=== PATIENT | female | born 1975 | race Caucasian/White ===

== ENCOUNTER 2018-09-21 08:11 | Day surgery (SDC) | payer OTHER ==
[2018-09-21] VITALS (10 sets, daily range): BP systolic 105–132; BP diastolic 65–82
[~2018-09-21] VITALS: Ht 157.5 cm; Wt 68.0 kg
[~2018-09-21 08:11] MED LIST: LO LOESTRIN FE1 EAC1 PO; cefOXitin Sod 2 GM in D5W 110 ML IVPB ONE
[2018-09-21] MEDS ORDERED: fentaNYL 100 mcg/2 mL IV ONE (09:44)
[2018-09-21] MEDS ORDERED: Midazolam 2mg/2ml Inj ONE (09:44)
[2018-09-21] MEDS ORDERED: Lidocaine 1% MPF 10mg/ml 5ml ONE (09:47)
[2018-09-21] MEDS ORDERED: Propofol 200mg/20ml IV ONE (09:47)
[2018-09-21] MEDS ORDERED: cefOXitin 1gm Inj ONE (09:50)
[2018-09-21] MEDS ORDERED: Succinylcholine 20mg/ml 10ml vial ONE (09:51)
[2018-09-21] MEDS ORDERED: Zemuron 50mg/5ml Inj IV ONE (09:51)
[2018-09-21] MEDS ORDERED: Sterile Water Irrig 1000ml IRRIG ONE (10:00)
[2018-09-21] MEDS ORDERED: LR 1000ml ONE (10:00)
[2018-09-21] MEDS ORDERED: Neostigmine 1mg/ml 10ml Inj ONE (10:00)
[2018-09-21] MEDS ORDERED: NS Irrig 1000ml ONE (10:00)
--- NOTE | 2018-09-21 10:03 | Pre-Procedure Note/Attestation ---
Pre-Procedure Note/Attestation Complete Prior to Procedure Planned Procedure: right Procedure Narrative: Laparoscopic right ovarian cystectomy, hysteroscopy, dilation and curettage Indications for Procedure Pre-Operative Diagnosis: Right ovarian cyst, abnormal uterine bleeding Attestation I attest that I discussed the nature of the procedure; its benefits; risks and complications; and alternatives (and the risks and benefits of such alternatives ), prior to the procedure, with the patient (or the patient's legal environmental marketing representative). I attest that, if there was a reasonable possibility of needing a blood transfusion, the patient (or the patient's legal environmental marketing representative) was given the [facility] standardized written summary, pursuant to the [place] Blood Safety Act ([place] Health and Safety Code # 1645, as amended). I attest that I re-evaluated the patient just prior to the surgery and that there has been no change in the patient's H&P, except as documented below: Harini Vogel M.D. Sep 21, 2018 10:03
[2018-09-21] MEDS ORDERED: Ropivacaine 5mg/ml Vial 30ml INJ ONE (10:07)
--- NOTE | 2018-09-21 11:02 | Anethesia Preoperative Eval ---
Anesthesia Pre-op PMH/ROS General Date of Evaluation: Sep 21, 2018 Time of Evaluation: 09:50 Anesthesiologist: Henri ASA Score: ASA 2 Mallampati Score Class I : Soft palate, uvula, fauces, pillars visible Class II: Soft palate, uvula, fauces visible Class III: Soft palate, base of uvula visible Class IV: Only hard plate visible Mallampati Classification: Class II Surgeon: Wes Diagnosis: Pelvic pain Surgical Procedure: D&C Hysterscopy, Laparoscopy Anesthesia History: none Family History: no anesthesia problems Allergies: Coded Allergies: No Known Allergies (Unverified , 09/18/18) Medications: see eMAR Patient NPO?: Yes Past Medical History Cardiovascular: Denies: HTN, CAD, CT, valve dz, arrhythmia, other Pulmonary: Denies: asthma, COPD, BRETT, other Gastrointestinal/Genitourinary: Reports: GERD; Denies: CRI, ESRD, other Neurologic/Psychiatric: Denies: dementia, CVA, depression/anxiety, TIA, other Endocrine: Denies: DM, hypothyroidism, steroids, other HEENT: Denies: cataract (L), cataract (R), glaucoma, BURNS PAIUTE (L), BURNS PAIUTE (R), other Hematology/Immune: Denies: anemia, DVT, bleeding disorder, other Musculoskeletal/Integumentary: Denies: OA, RA, DJD, DDD, edema, other PMH Narrative: as above PSxH Narrative: Anesthesia Pre-op Phys. Exam Physician Exam Last Vital Signs Date Time Temp Pulse Resp B/P (MAP) Pulse Ox O2 Delivery O2 Flow Rate FiO2 09/21/18 08:53 Room Air 09/21/18 08:45 97.4 66 18 120/70 98 Constitutional: NAD Neurologic: CN 2-12 intact Cardiovascular: RRR, no M/R/G Respiratory: CTA Gastrointestinal: S/NT/ND Airway Exam Mallampati Score: Class II MO: full Neck: flexible ROM: full Teeth: intact Dentures: no upper, no lower Anesthesia Pre-op A/P Labs See chart Urine Test Test 09/21/18 08:25 Urine HCG, Qualitative Negative (NEGATIVE) Studies Pre-op Studies: EKG - NSR Risk Assessment & Plan Assessment: ASA 2 Plan: GA with ETT PONV Prevention Status Change Before Surgery: No Pre-Antibiotics Drug: Cefoxitin 1gr. Given Within 1 Hr of Incision: Yes Time Given: 10:20 Jonathan Álvarez MD Sep 21, 2018 11:02
[2018-09-21] MEDS ORDERED: Morphine Sulfate 10mg/ml Inj ONE (11:03)
[2018-09-21] MEDS ORDERED: Ketorolac 30mg Inj ONE (11:04)
[2018-09-21] MEDS ORDERED: Glycopyrrolate 0.2mg/ml 1ml Vial ONE (11:04)
[2018-09-21] MEDS ORDERED: Sodium Chloride 10ml vial INJ ONE (11:04)
[2018-09-21] MEDS ORDERED: Midazolam 2mg/2ml Inj IVP PRN (11:15)
[2018-09-21] MEDS ORDERED: Ketorolac 30mg Inj IV PRN (11:15)
[2018-09-21] MEDS ORDERED: fentaNYL 100 mcg/2 mL IV PRN (11:15)
[2018-09-21] MEDS ORDERED: DiphenhydrAMINE 50mg/ml Inj IVP PRN (11:15)
[2018-09-21] MEDS ORDERED: Meperidine 50mg/ml Inj(FOR RIGORS ONLY) IV PRN (11:15)
[2018-09-21] MEDS ORDERED: LR 1000ml 1,000 ML IVLG SCH (11:15)
[2018-09-21] MEDS ORDERED: Metoclopramide 10mg/2ml Inj IVP PRN (11:15)
--- NOTE | 2018-09-21 11:57 | Brief Operative Note ---
Immediate Post Operative Note Operative Note Chief Complaint: Right ovarian cyst, irregular bleeding on control Pre-op Diagnosis: Right ovarian cyst, abnormal uterine bleeding Procedure: Laparoscopic right ovarian cystectomy, hysteroscopy, dilation and curettage Post-op Diagnosis: Right ovarian simple cyst and corpus luteum, normal endometrium, no other abnormalities noted Post-op Diagnosis: same as pre-op Findings: consistent w/pre-op dx studies Surgeon: Harini Simmons MD Behavioral Sciences Department Chair: Ras Douglass MD Anesthesiologist: Dr. Jim Anesthesia: general Specimen: yes - Right ovarian cyst, endometrial curettings, pelvic washings Complications: none Condition: stable Fluids: 1000ml Crystalloid Estimated Blood Loss: minimal Drains: none - Vallejo discontinued at end of procedure, 200cc clear urine out Implant(s) used?: No Harini Simmons M.D. Sep 21, 2018 11:57
--- NOTE | 2018-09-21 12:09 | Immediate Post-Op Evaluation ---
Immediate Post-Op Evalulation Immediate Post-Op Evalulation Procedure: D&C Hysteroscopy Laparoscopic removal of ovarian cyst Date of Evaluation: Sep 21, 2018 Time of Evaluation: 12:08 IV Fluids: 1200 Blood Products: none Estimated Blood Loss: <50 Urinary Output: 200 Blood Pressure Systolic: 118 Blood Pressure Diastolic: 78 Pulse Rate: 80 Respiratory Rate: 20 O2 Sat by Pulse Oximetry: 98 Temperature (Fahrenheit): 97.5 Pain Score (1-10): 2 Nausea: No Vomiting: No Complications NONE Patient Status: reacts, patent, extubated, none Hydration Status: adequate Jonathan Álvarez MD Sep 21, 2018 12:09
--- NOTE | 2018-09-21 12:12 | Operative Note - PDOC ---
Operative Note Operative Note Date of Operation/Procedure: Sep 21, 2018 Chief Complaint: Right ovarian cyst, irregular bleeding on control Pre-op Diagnosis: Right ovarian cyst, abnormal uterine bleeding Procedure: Laparoscopic right ovarian cystectomy, hysteroscopy, dilation and curettage Post-op Diagnosis: Right ovarian simple cyst and corpus luteum, normal endometrium, no other abnormalities noted Post-op Diagnosis: same as pre-op Operative Findings: consistent w/pre-op dx studies Surgeon: Harini Simmons MD Controls Designer: Ras Douglass MD Anesthesiologist: Dr. Jim Anesthesia: general Specimen: yes - Right ovarian cyst, endometrial curettings, pelvic washings Complications: none Condition: stable Fluids: 1000ml Crystalloid Estimated Blood Loss: minimal Drains: none - Dacosta discontinued at end of procedure, 200cc clear urine out Implant(s) used?: No Indications for Procedure 42yo with persistent right ovarian cyst and abnormal uterine bleeding on control. Description of Procedure The R/B/A to the procedure were discussed with the patient at length and informed consent was obtained. The patient was taken to the OR and placed in the dorsal supine position with SCD stockings in place. General anesthesia was administered without difficulty. The patient placed in the dorsal lithotomy position and dacosta catheter was placed in the urinary bladder. The patient was then prepped and draped in the usual sterile fashion with arms tucked at her sides in position. Attention was first turned to the pelvis where hysteroscopy was performed. Sterile bivalve speculum was inserted into the vagina and the anterior lip of the cervix was grasped with a single-toothed tenaculum. The cervix was sequentially dilated to accommodate the 7mm hysteroscope. The hysteroscope was inserted and the uterine cavity was inspected. Normal scant endometrium was noted, and both cornua were visualized and appeared normal. Hysteroscopy was terminated and curettage was performed. Endometrial curettings were obtained and handed off the surgical field. The uterus was sounded to 8cm and the uterine manipulator was placed. The tenaculum and speculum were removed and attention was turned to the abdomen. The umbilicus was injected with local anesthetic and a #11 blade scalpel was used to make a 10mm vertical intra-umbilical incision. The Veress needle was inserted into the abdomen and pneumoperitoneum was established using carbon dioxide gas. The Veress was withdrawn, and the 10mm trochar was inserted into the abdomen under direct visualization. The abdomen was inspected and no harm due to the procedure done was noted. The lower and upper abdomen were inspected and a right ovarian cyst was noted. No other abnormalities were appreciated. Two 5mm accessory ports were placed in the lower quadrants bilaterally after infiltration of local anesthetic, and under direct visualization. Pelvic washings were obtained. The uterus was elevated, and the right ovary was grasped and stabilized. Using monopolar electrosurgery the ovary was incised, however the cyst ruptured during the procedure and was subsequently drained. The cyst capsule was then gently dissected away from the healthy ovarian tissue using blunt dissection and gentle traction.The cyst capsule was removed through the right lower quadrant port site. A corpus luteum cyst was also noted, which was drained and then removed through the left lower quadrant port site. The ovary was inspected and hemostasis was achieved with bipolar electrosurgery. The pelvic was copiously irrigated and the ovary again inspected. Excellent hemostasis was noted. The ports were removed under direct visualization and the carbon dioxide gas was allowed to escape. The fascia at the umbilical port site was reapproximated using 0-Vicryl. The incisions were closed using subcuticular sutures of 4-0 Monocryl followed by Mastisol, steri-strips, gauze and Tegaderm. Attention was briefly turned back to the perineum where the uterine manipulator was removed without issue and the dacosta catheter was removed. The patient was awakened from anesthesia without complication and taken to the PACU for anticipated discharge from outpatient. Harini Simmons M.D. Sep 21, 2018 12:12
[2018-09-21] MEDS ORDERED: Norco 5mg/325mg tab ORAL PRN (12:15)
[2018-09-21] MEDS ORDERED: HYDROmorphone 1mg/ml Carpuject SUBQ PRN (12:15)
[2018-09-21] MEDS ORDERED: D5 1/2NS 1,000 ML IV SCH (12:15)
[2018-09-21] MEDS ORDERED: HYDROcodone/Acetamin 10/325 tab ORAL SCH (12:15)
--- NOTE | 2018-09-21 12:35 | 48 Hour Post Anesthesia Eval ---
Post Anesthesia Evaluation Procedure: D&C Hysteroscopy Laparoscopic removal of ovarian cyst Date of Evaluation: Sep 21, 2018 Time of Evaluation: 12:34 Blood Pressure Systolic: 105 0: 56 Pulse Rate: 78 Respiratory Rate: 18 Temperature (Fahrenheit): 97.5 O2 Sat by Pulse Oximetry: 98 Airway: patent Nausea: No Vomiting: No Pain Intensity: 2 Hydration Status: adequate Cardiopulmonary Status: stable Mental Status/LOC: patient returned to baseline Follow-up Care/Observations: n/a Post-Anesthesia Complications: none Follow-up care needed: ready to discharge Jonathan Álvarez MD Sep 21, 2018 12:35
== END 2018-09-21 14:50 | disposition home or self-care (01) ==
LOC: SUR 08:11 → EDBD 10:30 → SUR 14:50
DX: N83.201 Unspecified ovarian cyst, right side (principal); N93.8 Other specified abnormal uterine and vaginal bleeding; K21.9 Gastro-esophageal reflux disease without esophagitis
CPT/HCPCS: 49322; 58558; 81025; J0330; J0694; J1885; J2250; J2270; J2405; J2704; J2710; J2765; J2795; J3010; 94003; 94150